=== PATIENT | male | born 1960 | race African-American/Black ===

== ENCOUNTER 2017-03-19 16:56 | Emergency (ER) | payer MEDICAID, OTHER ==
[~2017-03-19] VITALS: Ht 182.9 cm; Wt 95.0 kg
[~2017-03-19 16:56] MED LIST: IOHEXOL-350 100 ML BOTTLE ONE; LEUP11.23 IM; LISI40TA4 PO; OXYC30TA86 PO; SODIUM CHLORIDE 0.9% 10ML VIAL ONE; XALAO EACHEYE; [UNRECOGNIZED DRUG - OTHER] PO; [UNRECOGNIZED DRUG - OTHER] SUBCUT
[2017-03-19 19:03] LABS: BASOPHILS % 0.5 % (0.0-2.0); EOSINOPHILS % 0.3 % (0.0-5.0); HEMATOCRIT. 37.5 % (42.0-52.0); HEMOGLOBIN. 12.5 g/dL (14.0-18.0); LYMPHOCYTES % 19.1 % (20.0-50.0); MEAN CORPUSCULAR HEMOGLOBIN 29.2 pg (28.0-32.0); MEAN CORPUSCULAR VOLUME 87.3 fL (80.0-94.0); MEAN PLATELET VOLUME 7.5 fl (7.4-10.4); MONOCYTES % 9.4 % (2.0-8.0); NEUTROPHILS % 70.7 % (40.0-76.0); PLATELET 259 x1000/uL (130-400); RED BLOOD CELL COUNT 4.29 mill/uL (4.7-6.1); RED CELL DISTRIBUTION WIDTH 13.5 % (11.6-14.6)
[2017-03-19 19:08] LABS: CHLORIDE 98 mEq/L (98-107)
[2017-03-19 19:15] LABS: CARBON DIOXIDE 26 mEq/L (21-32)
[2017-03-19] MEDS ORDERED: FENTANYL CITRATE/PF 50MCG/ML 2ML VIAL IV ONE (19:30)
[2017-03-19] MEDS ORDERED: SODIUM CHLORIDE 0.9% 1,000 ML IV ONE (19:30)
[2017-03-19] MEDS ORDERED: ONDANSETRON 4MG ODT PO ONE (20:15)
[2017-03-19 20:52] VITALS: BP 116/67
== END 2017-03-19 22:13 | disposition left against medical advice (07) ==
LOC: ER 18:00
DX: C61 Malignant neoplasm of prostate (principal); C79.51 Secondary malignant neoplasm of bone; M47.892 Other spondylosis, cervical region; E11.65 Type 2 diabetes mellitus with hyperglycemia; D63.0 Anemia in neoplastic disease; I10 Essential (primary) hypertension; F12.10 Cannabis abuse, uncomplicated; Z79.4 Long term (current) use of insulin
CPT/HCPCS: 36415; 71275; 72125; 80053; 85025; 93005; 96361; 96374; 99285; A4216; J3010; J7030; Q0162; Q9967; Z7610

== ENCOUNTER 2017-03-20 08:10 | Emergency (ER) | payer OTHER ==
[~2017-03-20] VITALS: Ht 182.9 cm; Wt 95.0 kg
[~2017-03-20 08:10] MED LIST changes: -IOHEXOL-350 100 ML BOTTLE ONE; -SODIUM CHLORIDE 0.9% 10ML VIAL ONE
[2017-03-20] MEDS ORDERED: SODIUM CHLORIDE 0.9% 1,000 ML IV ONE (10:17)
[2017-03-20] MEDS ORDERED: FENTANYL CITRATE/PF 50MCG/ML 2ML VIAL IV ONE ×2 (10:30→13:00)
[2017-03-20 11:27] LABS: BASOPHILS % 0.2 % (0.0-2.0); EOSINOPHILS % 0.2 % (0.0-5.0); HEMATOCRIT. 37.6 % (42.0-52.0); HEMOGLOBIN. 12.4 g/dL (14.0-18.0); LYMPHOCYTES % 12.7 % (20.0-50.0); MEAN CORPUSCULAR HEMOGLOBIN 28.6 pg (28.0-32.0); MEAN CORPUSCULAR VOLUME 86.7 fL (80.0-94.0); MEAN PLATELET VOLUME 7.7 fl (7.4-10.4); MONOCYTES % 9.2 % (2.0-8.0); NEUTROPHILS % 77.7 % (40.0-76.0); PLATELET 266 x1000/uL (130-400); RED BLOOD CELL COUNT 4.33 mill/uL (4.7-6.1); RED CELL DISTRIBUTION WIDTH 13.4 % (11.6-14.6)
[2017-03-20 11:32] LABS: PARTIAL THROMBOPLASTIN TIME 23.7 sec (23.4-31.0)
[2017-03-20 11:33] LABS: CHLORIDE 98 mEq/L (98-107)
[2017-03-20 11:38] LABS: CARBON DIOXIDE 32 mEq/L (21-32)
[2017-03-20 11:42] LABS: TROPONIN I < 0.02 ng/mL (0.00-0.04)
[2017-03-20 13:20] VITALS: BP 147/88
== END 2017-03-20 11:35 | disposition left against medical advice (07) ==
LOC: ER 09:08 → EDBEDREQ 12:03 → EDBEDREQTM 12:03 → ENRESERV 12:17 → CANRESERV 12:17 → CANBEDREQ 13:25
DX: C61 Malignant neoplasm of prostate (principal); C79.51 Secondary malignant neoplasm of bone; G89.3 Neoplasm related pain (acute) (chronic); E11.9 Type 2 diabetes mellitus without complications; I10 Essential (primary) hypertension; Z79.4 Long term (current) use of insulin; F12.10 Cannabis abuse, uncomplicated
CPT/HCPCS: 36415; 71010; 80053; 82962; 84484; 85025; 85610; 85730; 93005; 96361; 96374; 96376; 99285; J3010; Z7610; J7030

== ENCOUNTER 2017-04-27 11:47 | Emergency (ER) | payer OTHER ==
[~2017-04-27] VITALS: Ht 182.9 cm; Wt 95.0 kg
[2017-04-27 12:11] VITALS: BP 125/65
== END 2017-04-27 13:10 | disposition home or self-care (01) ==
LOC: ER 12:36
DX: G89.29 Other chronic pain (principal); M54.5 Low back pain; F12.10 Cannabis abuse, uncomplicated; I10 Essential (primary) hypertension; E78.00 Pure hypercholesterolemia, unspecified; E11.9 Type 2 diabetes mellitus without complications; Z85.46 Personal history of malignant neoplasm of prostate; Z91.19 Patient's noncompliance with other medical treatment and regimen
CPT/HCPCS: 99281

== ENCOUNTER 2017-06-21 17:19 | Emergency (ER) | payer OTHER ==
[~2017-06-21] VITALS: Ht 182.9 cm; Wt 93.0 kg
[2017-06-21 17:30] VITALS: BP 156/102
== END 2017-06-21 18:38 | disposition left against medical advice (07) ==
LOC: ER 17:43
DX: Z53.21 Procedure and treatment not carried out due to patient leaving prior to being seen by health care provider (principal)

== ENCOUNTER 2017-06-22 07:33 | Emergency (ER) | payer OTHER ==
[~2017-06-22] VITALS: Ht 182.9 cm; Wt 93.0 kg
[2017-06-22 07:37] VITALS: BP 127/100
[2017-06-22 08:30] LABS: CLARITY URINE CLOUDY (CLEAR); COLOR URINE YELLOW (YELLOW); KETONES URINE TRACE (NEGATIVE); LEUKOCYTE ESTERASE URINE 2+ (NEGATIVE); NITRITE URINE POSITIVE (NEGATIVE); OCCULT BLOOD URINE TRACE (NEGATIVE); PROTEIN URINE TRACE (NEGATIVE); SPECIFIC GRAVITY URINE 1.025 (1.005-1.030); UROBILINOGEN URINE 0.2 E.U./dL (0.2-1.0)
== END 2017-06-22 08:34 | disposition left against medical advice (07) ==
LOC: ER 07:41
DX: M79.1 Myalgia (principal); I10 Essential (primary) hypertension; E11.9 Type 2 diabetes mellitus without complications; E78.00 Pure hypercholesterolemia, unspecified; F12.10 Cannabis abuse, uncomplicated; Z85.46 Personal history of malignant neoplasm of prostate
CPT/HCPCS: 81001; 99283

== ENCOUNTER 2021-06-07 17:48 | Emergency (ER) | payer BC, MEDICAID ==
[~2021-06-07] VITALS: Ht 175.3 cm; Wt 80.0 kg
[~2021-06-07 17:48] MED LIST changes: +LISI40TA13 PO; -LISI40TA4 PO
[2021-06-07 19:27] LABS: BASOPHILS % 0.3 % (0.0-2.0); EOSINOPHILS % 1.6 % (0.0-5.0); HEMATOCRIT. 25.5 % (42.0-52.0); HEMOGLOBIN. 8.3 g/dL (14.0-18.0); LYMPHOCYTES % 17.7 % (20.0-50.0); MEAN CORPUSCULAR HEMOGLOBIN 27.4 pg (28.0-32.0); MEAN CORPUSCULAR VOLUME 84.2 fL (80.0-94.0); MEAN PLATELET VOLUME 6.5 fl (7.4-10.4); MONOCYTES % 10.5 % (2.0-8.0); NEUTROPHILS % 69.9 % (40.0-76.0); PLATELET 398 x1000/uL (130-400); RED BLOOD CELL COUNT 3.03 mill/uL (4.7-6.1)
[2021-06-07 19:33] LABS: CHLORIDE 98 mEq/L (98-107)
[2021-06-07 19:38] LABS: ETHANOL BLOOD < 10 mg/dL
[2021-06-07 19:39] LABS: PHOSPHORUS 4.1 mg/dL (2.5-4.9)
[2021-06-07 19:53] LABS: CREATINE KINASE 1256 IU/L (39-308)
[2021-06-07] MEDS ORDERED: SODIUM CHLORIDE 0.9% 1,000 ML IV NR ×2 (20:30→20:45)
[2021-06-07] MEDS ORDERED: VANCOMYCIN 1 G PREMIX 200 ML IV NR (20:45)
[2021-06-07] MEDS ORDERED: PIPERACILLIN/TAZ 3.375G PREMIX 50 ML IV NR (20:45)
[2021-06-07] MEDS ORDERED: PIPERACILLIN/TAZOBACTAM 3.375GM/50ML PREMIX IV ONE (20:45)
[2021-06-08 02:00] VITALS: BP 107/71
== END 2021-06-08 03:25 | disposition short-term general hospital (02) ==
LOC: ER 17:48
DX: G93.40 Encephalopathy, unspecified (principal); R94.31 Abnormal electrocardiogram [ECG] [EKG]; E78.00 Pure hypercholesterolemia, unspecified; I10 Essential (primary) hypertension; E11.9 Type 2 diabetes mellitus without complications; Z88.6 Allergy status to analgesic agent; Z20.822 Contact with and (suspected) exposure to COVID-19
CPT/HCPCS: 36415; 70450; 71045; 80053; 80307; 80320; 80329; 82140; 82550; 82962; 83605; 83735; 84100; 84145; 84443; 84484; 85025; 87040; 87426; 93005; 96365; 96367; 99291; J2543; G0480